=== PATIENT | female | born 1990 | race Caucasian/White ===

== ENCOUNTER 2016-08-19 15:49 | Emergency (ER) ==
[2016-08-19 16:01] VITALS: BP 109/71
[2016-08-19] MEDS ORDERED: AMOXIL PO ONE (16:42)
[2016-08-19] MEDS ORDERED: ZYRTEC PO ONE (16:42)
--- NOTE | 2016-08-19 16:51 | PROVIDER DOCUMENTATION ---
[facility] General - General Source: patient - History of Present Illness-[facility] General [facility] Location: reports: throat, facial Quality of Pain: reports: aching Severity: reports: mild Onset/Duration: reports: 4 days ago Timing: reports: still present, intermittent Prearrival Treatment: Initiated no prearrival treatment Associated Symptoms: reports: cough, fever, sore throat Locality of Occurance: Home Similar Symptoms Previously?: Yes Recently seen or treated by another doctor?: No - Throat/Dental Throat/Dental Problem Symptoms: reports: sore throat <Ely Salas - Last Filed: 08/19/16 16:44> <Hema Mccrary - Last Filed: 08/19/16 16:58> - General Chief Complaint: Sore Throat Stated Complaint: SORE THROAT Time Seen by Provider: 08/19/16 16:06 Allergies/Adverse Reactions: Patient Allergies Allergy/AdvReac Type Severity Reaction Status Date / Time acetaminophen [From Tylenol] Allergy Severe RASH Verified 11/06/14 23:01 NSAIDS (Non-Steroidal Allergy HIVES Verified 11/06/14 23:01 Anti-Inflamma aspirin AdvReac RASH Verified 11/06/14 23:01 prednisone AdvReac Unknown Verified 11/06/14 23:03 Home Medications: Home Medication List Medication Instructions Recorded Confirmed Last Taken Type Hydroxyzine 25 mg PO DAILY 11/06/14 11/06/14 11/06/14 21:30 History Amoxicillin 500 mg PO BID #14 tablet 08/19/16 Unknown Rx Cetirizine [Zyrtec] 10 mg PO DAILY #20 tablet 08/19/16 Unknown Rx - History of Present Illness-[facility] General Nature of Presenting Problem: Pt is 25 y/o F presents to the ED with sore throat, cough and sinus pressure. Pt states symptoms have been present for 4 days. Pt states intermittent F. Pt denies N/V/D. (Ely Salas) Review of Systems - Adult - REVIEW OF SYSTEMS - ADULT Constitutional: reports: fever. denies: chills Eyes: denies: blurred vision, double vision Ears, Nose, Mouth & Throat: reports: throat pain. denies: ear pain, nose pain Cardiovascular: denies: chest pain, heart murmur, irregular heart rate Respiratory: reports: cough. denies: shortness of breath, wheezing Gastrointestinal: denies: abdominal pain, diarrhea, nausea, vomiting Genitourinary: denies: dysuria, hematuria Musculoskeletal: denies: bone pain, joint pain, neck pain Integumentary: denies: hives, itching Neurological: denies: dizziness/vertigo, headache/migraines Psychiatric: reports: no symptoms reported Endocrine: reports: no symptoms reported Hematologic/Lymphatic: reports: no symptoms reported Allergic/Immunologic: reports: no symptoms reported All Other Systems: Reviewed and Negative <Esha Salasomi - Last Filed: 08/19/16 16:44> Past History - Adult - PAST MEDICAL HISTORY-ADULT Review of Records: reports: Nursing Assessment Review, Medications Reviewed, Social history reviewed & non-contributory. Major Childhood Illnesses: reports: denies history Cardiovascular: reports: denies history Respiratory: reports: denies history Gastrointestinal: reports: denies history Obstetrical/Gynecological: reports: denies history Genitourinary: reports: denies history Musculoskeletal: reports: denies history Neurological: reports: headaches/migraines Psychiatric: reports: anxiety Endocrine/Immune: reports: denies history Other Conditions: reports: denies history - PRIOR SURGERIES/PROCEDURES Surgical/Procedure History: reports: none - IMMUNIZATION STATUS Childhood Immunizations: See Nurse Assessment Flu Vaccine: See Nurse Assessment - FAMILY HISTORY Family History: reviewed, not pertinent - SOCIAL HISTORY Smoking: cigarettes, greater than 1 pack/day Provider spent 3-5 mins advising pt. on dangers of tobacco.: discussed smoking cessation Substance Use: denies Living Situation: family <Colin Salasi - Last Filed: 08/19/16 16:44> Physical Exam- EENT - Physical Exam EENT Initial Vital Signs Reviewed: Yes General Appearance: appears well, alert, no apparent distress Eye Exam: bilateral eye: normal inspection, PERRL, EOMI Ear Exam: bilateral ear: auricle normal, canal normal, TM normal Nasal Exam: sinus tenderness (frontal) Throat Exam: normal mouth inspection, other (pharynx redness) Neck: non-tender, full range of motion, supple, normal inspection Respiratory: chest non-tender, lungs clear, normal breath sounds, no pleuratic chest pain, no respiratory distress, no accessory muscle use Cardiovascular: normal peripheral pulses, regular rate, rhythm, no edema, no gallop, no JVD, no murmur Abdominal Exam: normal bowel sounds, non tender, soft, no organomegaly, no pulsatile mass Lymphatic: no adenopathy Back Exam: normal inspection, no CVA tenderness, no vertebral tenderness Extremity: normal range of motion, non-tender, normal gait, normal inspection, no pedal edema, no calf tenderness, normal capillary refill Integumentary: normal color, normal turgor, warm/dry Neurologic: grossly normal Psych/Mental Status: normal mood/affect, oriented x 3 <Ely Salas - Last Filed: 08/19/16 16:44> Progress <Ely Salas - Last Filed: 08/19/16 16:44> <Hema Mccrary - Last Filed: 08/19/16 16:58> - PLAN OF CARE/RESULTS Progress/Plan/Lab Results: Laboratory Tests 08/19/16 15:50 Group A Strep Rapid NEGATIVE Orders Category Date Time Status DIRECT STREP PL Stat Lab 08/19/16 15:50 Completed Amoxicillin [Amoxil] Med 08/19/16 16:42 Discontinued 500 mg PO NOW ONE Cetirizine [Zyrtec] Med 08/19/16 16:42 Discontinued 10 mg PO NOW ONE Vital Signs - 24 hr 08/19/16 15:57 Temperature 99.2 F Pulse Rate 85 Respiratory 18 Rate Blood Pressure 109/71 O2 Sat by Pulse 100 Oximetry (Ely Salas) Discussed results and plan of care with patient. Patient agrees with plan and verbalizes understanding. Vital Signs Temp Pulse Resp BP Pulse Ox 08/19/16 15:57 99.2 F 85 18 109/71 100 acetaminophen [From Tylenol] Allergy (Severe, Verified 11/06/14 23:01) RASH NSAIDS (Non-Steroidal Anti-Inflamma Allergy (Verified 11/06/14 23:01) HIVES aspirin Adverse Reaction (Verified 11/06/14 23:01) RASH prednisone Adverse Reaction (Verified 11/06/14 23:03) Unknown Hydroxyzine 25 mg PO DAILY 11/06/14 Laboratory 08/19/16 15:50 Group A Strep Rapid NEGATIVE Orders Category Date Time Status DIRECT STREP PL Stat Lab 08/19/16 15:50 Completed Amoxicillin [Amoxil] Med 08/19/16 16:42 Discontinued 500 mg PO NOW ONE Cetirizine [Zyrtec] Med 08/19/16 16:42 Discontinued 10 mg PO NOW ONE Laboratory Tests 08/19/16 15:50 Group A Strep Rapid NEGATIVE (Hema Mccrary) Departure <Ely Salas - Last Filed: 08/19/16 16:44> - Departure Time of Disposition Order: 16:56 Certified Medical Emergency: Emergent <Hema Mccrary - Last Filed: 08/19/16 16:58> - Departure DIAGNOSIS: Sinusitis Qualifiers: Sinusitis location: frontal Chronicity: acute Recurrence: not specified as recurrent Qualified Code(s): J01.10 - Acute frontal sinusitis, unspecified Disposition: HOME 01 Condition: Stable Additional Instructions: Follow up with primary care physician Take medications as directed Return to ED for any concerns or worsening of symptoms ED Follow Up Instructions: You have been treated by a care provider in the Emergency Department. These instructions are being provided to you so you can have an understanding of how to care for yourself upon discharge. Upon discharge from the Emergency Department, you are responsible for making arrangements for follow-up care by a physician of your choice. Take all prescribed medications as directed. Return to the Emergency Department immediately for any new or worsening symptoms. You may call the Physician Referral phone number at [phone] to obtain a list of Physicians who are taking new patients. Prescriptions: Amoxicillin 500 mg PO BID #14 tablet Cetirizine [Zyrtec] 10 mg PO DAILY #20 tablet Referrals: Clarence Waite [Primary Care Provider] - Attestation - Scribe Verification/Attestation Scribe:: Ely Salas Acting as Scribe for:: Hema Mccrary Scribe documention review:: This chart was documented by a scribe and accurately reflects the service the provider performed and the decisions made by the provider. <Ely Salas - Last Filed: 08/19/16 16:44> - Physician/ BRITTNEY Attestation Patient care was provided by Advanced Practice Provider:: Yes Advanced Practice Provider:: Hema Mccrary Advanced Practice Provider documentation review:: The Mid-level provider documentation, treatment plan and medical decision making was reviewed by the physician who agrees with all treatment and medical decision making by the P. <Hema Mccrary - Last Filed: 08/19/16 16:58> Physician Attestation
== END 2016-08-19 17:15 | disposition home or self-care (01) ==
LOC: P.ED 15:49
DX: J01.10 Acute frontal sinusitis, unspecified (principal); J02.9 Acute pharyngitis, unspecified; R05 Cough; R50.9 Fever, unspecified; J34.89 Other specified disorders of nose and nasal sinuses; F41.9 Anxiety disorder, unspecified; F17.210 Nicotine dependence, cigarettes, uncomplicated; Z79.899 Other long term (current) drug therapy; Z71.6 Tobacco abuse counseling
CPT/HCPCS: 87081; 87430